=== PATIENT | female | born 1940 | race Hispanic/Latino ===

== ENCOUNTER 2019-10-04 07:10 | Day surgery (SDC) | payer OTHER ==
[~2019-10-04] VITALS: Ht 157.5 cm; Wt 62.6 kg
[~2019-10-04 07:10] MED LIST: ALEN70TA10 PO; FAMO20TA8 PO; SIMV-43 PO; SODIUM CHLORIDE 0.9% 1000ML 1,000 ML IV ONE
[2019-10-04 07:44] VITALS: BP 142/55
[2019-10-04] MEDS ORDERED: PROPOFOL 10 MG/ML 20ML VIAL IV ONE ×2 (09:51)
[2019-10-04 10:20] VITALS: BP 112/69
[2019-10-04 10:25] VITALS: BP 125/63
[2019-10-04 10:31] VITALS: BP 128/63
[2019-10-04 10:36] VITALS: BP 124/76
[2019-10-04 10:45] VITALS: BP 135/76
== END 2019-10-04 10:50 | disposition home or self-care (01) ==
LOC: DAH 07:10 → ENDO 07:10
PROVIDERS: ATTEND Internal Medicine
DX: Z12.11 Encounter for screening for malignant neoplasm of colon (principal); D12.3 Benign neoplasm of transverse colon; K57.30 Diverticulosis of large intestine without perforation or abscess without bleeding; K64.0 First degree hemorrhoids; R14.1 Gas pain; K29.50 Unspecified chronic gastritis without bleeding; K44.9 Diaphragmatic hernia without obstruction or gangrene; K22.8 Other specified diseases of esophagus; K31.89 Other diseases of stomach and duodenum; E03.9 Hypothyroidism, unspecified; E78.00 Pure hypercholesterolemia, unspecified; F41.9 Anxiety disorder, unspecified; M19.90 Unspecified osteoarthritis, unspecified site
CPT/HCPCS: 43239; 45380; A4215; A4221; A4222; A4223; A4335; A4606; A4620; A4657; A4663; J2704 ×2; J7030